=== PATIENT | male | born 1955 ===

== ENCOUNTER 2023-06-04 09:40 | Outpatient (CLI) | payer MEDICARE, MEDICAID ==
--- NOTE | 2023-06-04 13:14 | Ultrasound Report ---
PROCEDURE: Duplex Aorta Limited INDICATIONS: AAA TECHNIQUE: Real time scanning was performed of the aorta and iliac arteries, with image documentatio n. COMPARISON: None. FINDINGS: Aorta: Proximal aortic diameter measures 2.8 x 2.5 cm. Mid-aorta measures 2.3 x 2.3 cm. Distal aor tic diameter is 2.6 x 2.5 cm. Iliac arteries: Right common iliac artery measures 1.4 x 1.3 cm. Left common iliac artery measures 1.2 x 1.4 cm. IMPRESSION: Mild infrarenal abdominal aortic ectasia. No kali aneurysm. Recommended intervals for follow-up imaging of ectatic aortas and abdominal aortic aneurysms, per ACR consensus guidelines: 2.5-2.9 cm: 5 years 3.0-3.4 cm: 3 years 3.5-3.9 cm: 2 years 4.0-4.4 cm: 1 year 4.5-4.9 cm: 6 months + endovascular referral 5.0-5.5 cm: 3-6 months + endovascular referral Reviewed by: Diego Bojorquez MD on 06/04/2023 1:13 PM PDT Approved by: Diego Bojorquez MD on 06/04/2023 1:13 PM PDT Station ID: [id number]
== END 2023-06-04 09:41 | disposition home or self-care (01) ==
LOC: DI 09:40
PROVIDERS: ATTEND Student in an Organized Health Care Education/Training Program
DX: I71.40 Abdominal aortic aneurysm, without rupture, unspecified (principal)
CPT/HCPCS: 93979